=== PATIENT | male | born 1990 | race Caucasian/White ===

== ENCOUNTER 2018-01-12 04:17 | Emergency (ER) | payer SELFPAY ==
--- NOTE | 2018-01-12 04:35 | EDM.PDOC ---
ED HPI GENERAL MEDICAL PROBLEM - General Chief Complaint: ENT Problem Stated Complaint: poss allergic reaction Time Seen by Provider: 01/12/18 04:28 Source of Information: Reports: Patient History Limitations: Reports: No Limitations - History of Present Illness INITIAL COMMENTS - FREE TEXT/NARRATIVE: This is a 27-year-old male. He went to see a physician yesterday because his 2 front lower teeth are infected. He woke up this morning noting that his jaw is more swollen and it feels numb. He thinks he might be having a reaction to the amoxicillin. I explained to him however that amoxicillin is not site specific reactions and is probably the infection and the swelling is causing the numbness in his chin and his jaw. He has no rash he has no shortness of breath he's had no nausea and vomiting. He might of had a mild fever but it was not documented. Oral/Mouth Pain Score (Numeric/FACES): 10 - Related Data Allergies Allergy/AdvReac Type Severity Reaction Status Date / Time No Known Allergies Allergy Verified 01/12/18 04:24 Home Meds: Home Meds Amoxicillin 500 mg PO TID 01/12/18 [History] Clindamycin HCl 300 mg PO TID #21 capsule 01/12/18 [Rx] Past Medical History - Past Health History Medical/Surgical History: Denies Medical/Surgical History Social & Family History - Tobacco Use Smoking Status *Q: Current Every Day Smoker Years of Tobacco use: 8 Packs/Tins Daily: 0.2 - Caffeine Use Caffeine Use: Reports: Coffee - Recreational Drug Use Recreational Drug Use: No ED ROS ENT - Review of Systems Review Of Systems: See Below Constitutional: Reports: Fever. Denies: Chills HEENT: Reports: Dental Pain, Other (Facial swelling) Respiratory: Reports: No Symptoms Cardiovascular: Reports: No Symptoms Endocrine: Reports: No Symptoms GI/Abdominal: Reports: No Symptoms : Reports: No Symptoms Musculoskeletal: Reports: No Symptoms Skin: Reports: Other (As per history of present illness) Neurological: Reports: No Symptoms Psychiatric: Reports: No Symptoms Hematologic/Lymphatic: Reports: No Symptoms ED EXAM, ENT - Physical Exam Exam: See Below Exam Limited By: No Limitations General Appearance: Alert, WD/WN, No Apparent Distress Eye Exam: Bilateral Eye: Normal Inspection Ears: Normal External Exam Nose: Normal Inspection Mouth/Throat: Other (Looking at the lower front 2 teeth the gum is somewhat reddened but minimally swollen, the chin itself has some mild swelling noted but he has a full stewart and it's hard to tell, the left edge of the jaw also appears to be numb but I don't see any obvious swelling compared to the right edge of the jaw, there is minimal lymphadenopathy at the angle of the jaw, the tongue is not swollen and there is no other acute findings) Head: Normocephalic Neck: Supple, Non-Tender Respiratory/Chest: No Respiratory Distress Back: Full Range of Motion Extremities: Normal Inspection, Normal Range of Motion Neurological: Alert, Oriented Psychiatric: Normal Affect, Normal Mood Skin: Warm, Dry Course - Vital Signs Last Recorded V/S: Last Vital Signs Temp 98.2 F 01/12/18 04:21 Pulse 63 01/12/18 04:21 Resp 16 01/12/18 04:21 BP 147/95 H 01/12/18 04:21 Pulse Ox 97 01/12/18 04:21 - Orders/Labs/Meds Orders: Active Orders 24 hr Category Date Time Status cefTRIAXone [Rocephin] 1 gm Med 01/12/18 04:45 Active Lidocaine 1% [Xylocaine 1%] 2.1 ml IM Q24H Medication Orders Ceftriaxone Sodium 1 gm/ (Lidocaine HCl 2.1 ml) 0 gm IM [facility] Last Admin: 01/12/18 04:41 Dose: 2.1 inj Meds: Medications Generic Name Dose Route Start Last Admin Trade Name Freq PRN Reason Stop Dose Admin Ceftriaxone Sodium 1 gm/ 0 gm 01/12/18 04:45 01/12/18 04:41 Lidocaine HCl 2.1 ml IM 2.1 inj Q24H [facility] Administration - Re-Assessments/Exams Free Text/Narrative Re-Assessment/Exam: 01/12/18 05:13 After the Rocephin shot the patient is doing fine without any reactions. He wants to go home. Departure - Departure Time of Disposition: 05:13 Disposition: Home, Self-Care 01 Condition: Fair Clinical Impression: Dental infection, Pain, dental - Discharge Information *PRESCRIPTION DRUG MONITORING PROGRAM REVIEWED*: Not Applicable *COPY OF PRESCRIPTION DRUG MONITORING REPORT IN PATIENT JENNIFER: Not Applicable Prescriptions: Clindamycin HCl 300 mg PO TID #21 capsule Referrals: PCP,None [Primary Care Provider] - Forms: ED Department Discharge Additional Instructions: Get the antibiotics today and start taking them this evening, consider using a warm compress to the face to help with the swelling, if you have marked increased swelling sure to follow up with your dentist appointment this week or return to the ER, take ibuprofen or Aleve as needed for soreness or pain - My Orders Last 24 Hours: My Active Orders 01/12/18 04:45 cefTRIAXone [Rocephin] 1 gm Lidocaine 1% [Xylocaine 1%] 2.1 ml IM Q24H - Assessment/Plan Last 24 Hours: My Active Orders 01/12/18 04:45 cefTRIAXone [Rocephin] 1 gm Lidocaine 1% [Xylocaine 1%] 2.1 ml IM Q24H
[2018-01-12] MEDS ORDERED: cefTRIAXone 1 GM, Lidocaine 1% 2.1 ML IM SCH ×2 (04:45)
== END 2018-01-12 05:20 | disposition home or self-care (01) ==
LOC: JD.ED 04:17
DX: K04.7 Periapical abscess without sinus (principal); F17.210 Nicotine dependence, cigarettes, uncomplicated
CPT/HCPCS: 96372; 99283; J0696